=== PATIENT | male | born 1955 | race Caucasian/White ===

== ENCOUNTER 2017-10-25 09:53 | Observation (INO) | payer BC ==
[~2017-10-25] VITALS: Ht 170.2 cm; Wt 77.0 kg
[~2017-10-25 09:53] MED LIST: AMLODIPINE BESYL5 MG PO; ASPIRIN325 MG PO; BENICAR HCT 401 EACH PO; CATAPRES0.1 MG PO; COQ-10100 MG PO; CRESTOR40 MG PO; HYDROCODON-ACE1 EAC7 PO; IMDUR60 MG PO; INVOKANA300 MG PO; METFORMIN HCL500 MG PO; MULTIPLE VITAM1 EACH PO; NEXIUM40 MG PO; NITROSTAT0.4 MG SL; NUMOISYN300 ML PO; SPIRONLACTONE PO; ZETIA10 MG PO
[2017-10-25 10:36] LABS: HEMATOCRIT 44.3 % (38.0-50.0); HEMOGLOBIN 15.6 G/DL (12.5-16.6); MCH 29.4 PG (29.0-34.0); MCHC 35.2 G/DL (30.0-36.0); MCV 83.4 FL (86-99); PLATELET COUNT 181 K/uL (156-360); RBC DIS.WIDTH-CV 13.5 % (11.8-14.6); RBC DIS.WIDTH-SD 40.7 % (39-53); RED BLOOD COUNT 5.31 M/uL (4.00-5.50); WHITE BLOOD COUNT 10.7 K/uL (4.1-10.2)
[2017-10-25 10:45] LABS: ALBUMIN 4.3 g/dL (3.2-4.8)
[2017-10-25 10:48] LABS: TOTAL PROTEIN 7.6 g/dL (6.4-8.3)
[2017-10-25 10:50] LABS: TOTAL BILIRUBIN 1.7 mg/dL (0.0-1.0)
[2017-10-25 10:51] LABS: ALKALINE PHOSPHATASE 104 IU/L (3-129)
[2017-10-25 10:53] LABS: AST (GOT) 55 IU/L (2-34)
[2017-10-25 10:54] LABS: ALT (GPT) 47 IU/L (3-49); DIRECT BILIRUBIN 0.7 mg/dL (0.0-0.3)
[2017-10-25 10:55] LABS: LIPASE 44 U/L (1.0-51.0)
[2017-10-25 10:58] LABS: TROP-I INTERPRETATION NEGATIVE; TROPONIN-I 0.02 ng/mL (0.0-0.30)
[2017-10-25 11:01] LABS: CHLORIDE 99 mEq/L (99-109); POTASSIUM 3.9 mEq/L (3.7-5.4); SODIUM 136 mEq/L (136-147)
[2017-10-25 11:03] LABS: GLUCOSE 140 mg/dL (70-99)
[2017-10-25 11:06] LABS: CREATININE 1.1 mg/dL (0.6-1.3); GFR ESTIMATE (CALCULATED) > 59 mL/min/ (58.99-99999)
[2017-10-25 11:07] LABS: UREA NITROGEN (BUN) 24 mg/dL (9-23)
[2017-10-25] MEDS ORDERED: HYZAAR 100-21 TABLET PO (13:43)
[2017-10-25] MEDS ORDERED: PREVACID 24HR15 MG PO (13:47)
[2017-10-25 16:24] VITALS: BP 131/62
[2017-10-25 17:22] LABS: TROP-I INTERPRETATION NEGATIVE; TROPONIN-I < 0.01 ng/mL (0.0-0.30)
[2017-10-25 19:50] VITALS: BP 131/60
[2017-10-25 22:54] VITALS: BP 127/58
[2017-10-25 23:25] LABS: TROP-I INTERPRETATION NEGATIVE; TROPONIN-I < 0.01 ng/mL (0.0-0.30)
[2017-10-26 03:19] VITALS: BP 126/61
[2017-10-26 05:52] LABS: HEMATOCRIT 40.3 % (38.0-50.0); MCH 28.2 PG (29.0-34.0); MCHC 33.5 G/DL (30.0-36.0); MCV 84.1 FL (86-99); PLATELET COUNT 170 K/uL (156-360); RBC DIS.WIDTH-CV 13.5 % (11.8-14.6); RBC DIS.WIDTH-SD 41.5 % (39-53); RED BLOOD COUNT 4.79 M/uL (4.00-5.50); WHITE BLOOD COUNT 8.8 K/uL (4.1-10.2)
[2017-10-26 05:56] LABS: ALBUMIN 3.6 G/DL (3.2-4.8); ALKALINE PHOSPHATASE 70 IU/L (3-129); ALT (GPT) 62 IU/L (3-49); AST (GOT) 48 IU/L (2-34); CHLORIDE 100 MEQ/L (99-109); GFR ESTIMATE (CALCULATED) > 59 mL/min/ (58.99-99999); GLUCOSE 127 mg/dL (70-99); POTASSIUM 3.2 MEQ/L (3.7-5.4); SODIUM 135 MEQ/L (136-147); TOTAL BILIRUBIN 1.6 MG/DL (0.0-1.0); TOTAL PROTEIN 6.4 G/DL (6.4-8.3); UREA NITROGEN (BUN) 23 mg/dL (9-23)
[2017-10-26 06:06] LABS: HEMOGLOBIN 13.5 G/DL (12.5-16.6)
[2017-10-26 07:45] VITALS: BP 118/58
== END 2017-10-26 12:20 | disposition home or self-care (01) ==
LOC: EME 09:53 → EDOF 14:53 → 4SOUTH 14:53 → ENRESERV 14:56 → 4SOUTH 16:09
PROVIDERS: Hospitalist; Physician Assistant; Physician Assistant Medical
DX: R07.89 Other chest pain (principal); I25.10 Atherosclerotic heart disease of native coronary artery without angina pectoris; K44.9 Diaphragmatic hernia without obstruction or gangrene; Z95.1 Presence of aortocoronary bypass graft; Z95.2 Presence of prosthetic heart valve; K55.1 Chronic vascular disorders of intestine; I10 Essential (primary) hypertension; E78.5 Hyperlipidemia, unspecified; I70.1 Atherosclerosis of renal artery; Z98.890 Other specified postprocedural states; R79.89 Other specified abnormal findings of blood chemistry; R91.8 Other nonspecific abnormal finding of lung field; K21.9 Gastro-esophageal reflux disease without esophagitis; E11.9 Type 2 diabetes mellitus without complications; Z79.4 Long term (current) use of insulin; G89.29 Other chronic pain; M54.5 Low back pain; Z82.49 Family history of ischemic heart disease and other diseases of the circulatory system; Z79.82 Long term (current) use of aspirin
CPT/HCPCS: 71275; 74175; 80053; 80076; 82948; 83690; 84484; 85027; 93005; 99281; 99285; G0378; J1650; J1815; J2405; J3010; J7120